=== PATIENT | female | born 1985 | race Caucasian/White ===

== ENCOUNTER 2019-06-14 09:02 | Emergency (ER) | payer MEDICAID, SELFPAY ==
[2019-06-14 09:03] VITALS: BP 138/72; PULSE 86; RESP 14; TEMP 36.6; O2SAT 98; BMI 25.7
--- NOTE | 2019-06-14 09:34 | RAD_ITS ---
STUDY: X-RAY - LEFT ANKLE REASON FOR EXAM: Female, 33 years old. Pain following injury. TECHNIQUE: 3 view(s) of the ankle. COMPARISON: None. FINDINGS: Nondisplaced linear fracture along the posterior malleolus of the distal tibia. Normal medial and lateral malleoli. Normal tibiotalar articulation and ankle mortise. Normal visualized talus and calcaneus. The visualized subtalar, talonavicular, calcaneocuboid and tarsal articulations are normal. Soft tissue swelling. RAD/Ankle min 3 Views IMPRESSION: Nondisplaced fracture along the posterior malleolus of the distal tibia. Soft tissue swelling. Electronically Signed: David Bustillo, at 10:01 EDT , Service support ,
--- NOTE | 2019-06-14 09:34 | ED.VIS.GEN ---
History of Present Illness Chief Complaint: Lower Extremity Injury Informant: Patient Onset: Today Current Severity: Mild Narrative: Complains of left lower extremity ankle injury as she was walking up some stairs she inadvertently slipped has pain to the left ankle no foot pain no tib-fib knee or ankle pain no other complaints other injury Denies past history Past Medical History - Allergies and Home Meds Allergies/Adverse Reactions: Allergies No Known Allergies Allergy (Verified 05/12/15 10:46) Primary Care Physician: Care Physician,No Primary [Primary Care Provider] - Past Medical History: - Smoking Status: Never smoker Review of Systems ROS: - None and as above General: Denies: Chills, Fever, Sweats Eyes: Denies: Visual changes - bilaterally, Diplopia ENT: Denies: Rhinorrhea, Sore throat Cardiovascular: Denies: Chest pain, Palpitations Respiratory: Denies: Dyspnea, Cough, Dyspnea on exertion Gastrointestinal: Denies: Abdominal pain, Nausea, Vomiting, Diarrhea, Melena, Hematochezia Genitourinary: Denies: Dysuria, Hematuria, Frequency Musculoskeletal: Denies: Back pain, Extremity Pain Skin: Denies: Rash, Wounds Neurological: Denies: Headache, Weakness, Numbness Physical Exam Vital Signs/Narrative: Vital Signs Temp Pulse Resp BP Pulse Ox 06/14/19 09:03 97.8 F 86 14 138/72 H 98 Extremities: Tenderness, - - Very mild tenderness over the ankle primarily over the lateral malleolus she is able to dorsi and plantarflex Achilles intact the foot is nontender the ankle shows no deformity neurovascular function normal the tib-fib and knee are normal Diagnostic/Tx/Re-eval - Medical Decision Making Given all the above x-rays obtained of the ankle shows nothing acute I expect to the concept of occult injury to the bones ligaments the Achilles tendon etc. she is going on a trip to [place] she placed an Aircast crutches ice elevation [facility] for pain she will follow-up with her own orthopedic physician or Dr. Correa champion of sustainable design when she gets back or sooner and she will return for change in symptoms Home stable Final impression left ankle injury ED Disposition - Plan for ED Patient: Diagnosis: Ankle injuries Instructions: Sprain, Ankle, with X-Ray Referrals: Care Physician,No Primary [Primary Care Provider] - Jose Correa MD [STAFF PHYSICIAN] -
--- NOTE | 2019-06-14 10:35 | ED.DEP ---
ED Disposition - Plan for ED Patient: Diagnosis: Ankle injuries Instructions: FRACTURE, Lower Extremity Prescriptions: Naproxen [Naprosyn] 500 mg PO BID PRN #20 tab Prescription Printed Referrals: Jose Correa MD [STAFF PHYSICIAN] - Care Physician,No Primary [Primary Care Provider] -
--- NOTE | 2019-06-14 10:43 | ED.RN ---
PT NOT ABLE TO TOLERATE WALKING BOOT PLACEMENT. DR SAM INFORMED- VERBAL INSTRUCTIONS RECEIVED TO PLACE LOOSE REHAN WRAP AND AIR CAST. PT HAS APPT W/ORTHO AT 1515 TODAY. PAIN MED REQUESTED BY PT- NEW ORDER RECEIVED FOR NAPROXEN 500MG X1 PO.
[2019-06-14] MEDS: Naproxen 250 MG Tablet 500 MG PO (10:47)
== END 2019-06-14 11:01 | disposition home or self-care (01) ==
PROVIDERS: Emergency Provider Emergency Medicine
DX: S82.892A Other fracture of left lower leg, initial encounter for closed fracture (principal); W01.0XXA Fall on same level from slipping, tripping and stumbling without subsequent striking against object, initial encounter; Y93.01 Activity, walking, marching and hiking; Y92.89 Other specified places as the place of occurrence of the external cause; Y99.9 Unspecified external cause status
CPT/HCPCS: 73610; 99284

== ENCOUNTER 2019-07-31 10:30 | Outpatient (RCR) | payer MEDICAID, SELFPAY ==
--- NOTE | 2019-07-09 16:51 | HP.PTEVAL_ITS ---
Patient's Visit Information BERTIN PEARL is a 33 year old F referred to Physical Therapy by Jose Correa MD with a diagnosis of Ankle Fracture. Date of Evaluation: 07/06/19 Physical Therapist: Madelyn Poe DPT - Visit Plan Frequency: 2x /Week Duration: 4 Weeks Plan: Focus on ROM, WB tolerance, general LE strengthening, postural stability, gait training, stair training, and pain control. Modalities as needed. - Subjective Findings: Pt. slipped on water at home and fell 06/14/2019. She went to ER where they attempted to place her ankle in a boot, but were unable to d/t swelling. She saw Dr. Correa at the ER for consult- Initially they told her the ankle was not fractured but called later to inform her that their was actually a distal fibular fracture. She was given an air cast and left for [place] the next day for vacation. She ambulated mostly on crutches while in [place], with much difficulty. She reports falling multiple times on crutches so her father purchased her a knee scooter. Upon return she saw Dr. Correa and was NWB?ing and was placed in a boot. Mostly uses a knee-scooter to ambulate at this time. She states to bothered more by swelling than the pain at this point. She reports pain to be 7/10 at its worst, but currently a 1/10. Aggravating factors include WB?ing, stairs, and plantarflexing. Relieving factors include ice and rest. Deny?s radiating pain up the leg. Reports N/T on bottom & sides of the foot. 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 Pt. reports using knee-scooter for most of work day. Pt. has one child (8 years old) and one dog at home and appears very anxious regarding her L ankle. Follow-up appointment with Dr. Correa on 07/09/19 to discuss WB status. - Objective Posture: FH, RS. Gait: currently non-weight bearing and using knee scooter in clinic- able to maintain precautions of NWB during initial evaluation. Palpation: TTP at malleoli & heel. AROM: DF 5, PF 30, Inv 30, Ev 10. Girth: Malleoli 25 cm, Fig. 8 50 cm, Met Heads 22.5 cm. Strength: Knee Flex. 5/5, Ext 5/5, ankle PF 4-/5, DF 4-/5. Flexibility: Gastroc: severe, Soleus: moderate, Hamstring: moderate. Observation: mild atrophy of the calf- mild bruising down the 5th met and into the 3-5 metatarsals - Goals Goal 1:: Pt. will be I with HEP and progression Goal Time Frame: 4-6 Weeks Goal 2:: Pt. will be able to ambulate >300 ft with normalized gait pattern w/ no AD or boot. Goal Time Frame: 4-6 Weeks Goal 3:: Pt. will be able to ascend/descend stairs with recirpocal pattern w/ no use of handrail Goal Time Frame: 4-6 Weeks Goal 4:: Pt. will return to work w/ pain level of 0/10 Goal Time Frame: 4-6 Weeks - Rehabilitation Potential Physical Therapy Diagnosis: Pt. presents with hypomibility, antalgic gait pattern, edema, decreased muscle performance, and pain leading to decreased ability of ADL and decreased function. Rehabilitation Potential: Good - Anticipated Interventions Patient/Client Instruction: Educate patient on: Condition, Plan of Care, Risk Factors For the Purpose of:: To decrease pain Therapeutic Exercise to Include: Strength training, Endurance training, Balance training, Agility training, Body mechanics, Postural training, Flexibilty training, Gait and locomotor training, Passive ROM, Active ROM, Dynamic Lumbar Stabilization For the Purpose of:: To improve muscle performance and motor function Functional Training to Include: Gait training For the Purpose of:: To improve ability to perform ADL's Assistive Devices: Crutches For the Purpose of:: To improve ability to perform ADL's Cryotherapy (ice pack, ice massage): Yes Thermo therapy (hot pack): Yes For the Purpose of:: To decrease pain Thank you for the opportunity to evaluate your patient. For Medicare and Medicare HMO plans, please review the plan of care and approve it. It will need to be FAXED BACK to us at [phone] for Medicare purposes. For Medicare only, by signing this I certify the plan of care. Please let me know if there are questions or concerns regarding this plan of care. Physician Signature: Date:
--- NOTE | 2019-07-31 12:35 | HP.PTDCSUM ---
HP - PT D/C Summary It has been my pleasure to treat BERTIN PEARL under orders from Jose Correa MD, for the diagnosis of Ankle Fracture for a total of 5 visit(s). Discharge Date: Please see the following information for a summary of their discharge status. - Subjective Subjective: Had some swelling in shower a few days ago, w/ mild. Some diffcult descending stairs, no significant concerns. - Overall Improvement % Improvement: 90 - Objective Objective/Function: Posture: FH, RS. Gait: No deviations noted. No AD. Palpation: Slight tenderness at lat. mal. AROM: DF 15, PF 30, Inv 30, Ev 30. Girth: Malleoli 24 cm, Fig. 8 26 cm, Met Heads 18 cm. Strength: Knee Flex. 5/5, Ext 5/5, ankle PF 5/5, DF 5/5. Flexibility: Gastroc: severe, Soleus: mild, Hamstring: mild - Goals Goal 1:: Pt. will be I with HEP and progression Goal Progress: Goal Met Goal 2:: Pt. will be able to ambulate >300 ft with normalized gait pattern w/ no AD or boot. Goal Progress: Goal Met Goal 3:: Pt. will be able to ascend/descend stairs with recirpocal pattern w/ no use of handrail Goal Progress: Goal Met Goal 4:: Pt. will return to work w/ pain level of 0/10 Goal Progress: Progressing - Plan Plan: Focus on ROM, WB tolerance, general LE strengthening, postural stability, gait training, stair training, and pain control. Modalities as needed. 07/31/19 Pt. D/C d w/ HEP: step-ups, lateral step-ups, lateral band walks (PTB), gastroc stretch, standing HS stretch, 4-Way Ankle PTB - D/C Information If there are questions or concerns regarding this patient's physical therapy, please feel free to call me at [phone]. Thank you for the referral of this patient. Sincerely, Madelyn Poe DPT
== END 2019-07-31 19:00 | disposition home or self-care (01) ==
LOC: PT 10:30
PROVIDERS: Referring Provider Specialist; Visit Provider Specialist
DX: S82.892D Other fracture of left lower leg, subsequent encounter for closed fracture with routine healing (principal)
CPT/HCPCS: 97110; 97116; 97161; 97164

== ENCOUNTER 2021-12-29 11:45 | Emergency (ER) | payer MEDICAID, SELFPAY ==
[2021-12-29 11:46] VITALS: BP 146/105; PULSE 86; RESP 18; TEMP 36.2; O2SAT 96; BMI 28.1
--- NOTE | 2021-12-29 12:09 | EKG12_ITS ---
Test Reason : CHEST TIGHTNESS Blood Pressure : / mmHG Vent. Rate : 082 BPM Atrial Rate : 082 BPM P-R Int : 168 ms QRS Dur : 080 ms QT Int : 356 ms P-R-T Axes : 061 039 056 degrees QTc Int : 415 ms Sinus rhythm with Premature atrial complexes Otherwise normal ECG Confirmed by OUSMANE TURK, FRANCESCA ([id number]), electronic news gathering editor KAUR ROBLES ([id number]) on 12/30/2021 11:53:45 AM Referred By: WAYLON Confirmed By:FRANCESCA ROMEO MD
--- NOTE | 2021-12-29 12:09 | RAD_ITS ---
STUDY: X-RAY CHEST REASON FOR EXAM: Female, 36 years old. Intermittent chest pain. TECHNIQUE: Single AP portable view of the chest. COMPARISON: None. FINDINGS: The lungs are clear and expanded. There is no demonstrated pleural abnormality. Normal size heart. Normal mediastinum and broderick. Normal visualized pulmonary arteries. Normal visualized aortic arch and descending thoracic aorta. There is a levoscoliosis of the thoracic spine. Normal visualized ribs, clavicles, and shoulders. There is no demonstrated abnormality of the visualized soft tissue structures of the upper abdomen. RAD/Chest 1 View (Portable) IMPRESSION: Levoscoliosis. The lungs are clear. Electronically Signed: David Bustillo MD at 12:47 EST ,
[2021-12-29 12:44] VITALS: PULSE 93; RESP 20; O2SAT 100
[2021-12-29 13:04] LABS: Absolute Lymphocyte Count 1.61 X10^3/uL (0.83-4.51); Absolute Neutrophil Count 6.7 X10^3/uL (2.0-7.7); Basophil# 0.08 X10^3/uL; Basophil% 0.9 % (0-1); Eosinophil# 0.21 X10^3/uL; Eosinophils% 2.3 % (0-5); Hematocrit 40.1 % (37-47); Hemoglobin 13.5 g/dL (12.0-15.0); Lymphocyte # 1.61 X10^3/ul (0.83-4.51); Lymphocyte % 17.4 % (19-41); Mean Corp Hgb Conc 33.7 g/dL (32-36); Mean Corpuscular Hgb 28.9 pg (27.0-32.0); Mean Corpuscular Volume 85.9 fL (81-99); Mean Platelet Vol. 9.1 fl (6.2-12.0); Monocyte% 6.5 % (0-10); NRBC Flagged by Analyzer 0 % (0-5); Neutrophil # 6.73 X10^3/uL (2.7-7.7); Neutrophil % 72.7 % (47-70); Platelet Count 323 K/mm3 (150-450); RBC Distribution Width SD 37.7 fl (35.1-43.9); Red Blood Count 4.67 M/mm3 (4.2-5.4); White Blood Count 9.3 K/mm3 (4.4-11.0)
[2021-12-29 13:18] LABS: Anion Gap 4 (5-15); BUN 12 mg/dL (7-18); BUN/Creat Ratio 14.4 RATIO (10-20); Chloride 107 mmol/L (98-107); Creatinine, Serum 0.84 mg/dL (0.55-1.02); EST Glomerular Filtration Rate 82 mL/min (>60); Est Glom Filt Rate - Afr Amer 99 mL/min (>60); Estimated Creatinine Clearance 79.95 ml/min; Glucose 107 mg/dL (74-106); Potassium 3.7 mmol/L (3.5-5.1); Sodium Level 139 mmol/L (136-145); Troponin-I HS < 3 pg/mL (3.0-54.0)
--- NOTE | 2021-12-29 14:18 | ED.VIS.CHEST ---
HPI History of Present Illness Chief Complaint: Chest Pain Informant: patient Onset/Context/Timing Onset: Days Timing: Intermittent Quality: Positive for - (Palpitations) Location: Substernal Worsened By: Nothing Relieved By: Nothing Associated Symptoms: Positive for Lightheadedness and Palpitations; Negative for Nausea, Vomiting, Diaphoresis, Dyspnea, Cough, Fever and Acid Reflux Narrative Narrative: Patient presents with chest pain and palpitations that have been intermittent for the past couple days. Patient states that her watch noted that she was having an irregular heartbeat. Patient states that it registered as atrial fibrillation. Patient called her primary care physician who referred her to the emergency department for testing. Patient states she had an episode of lightheadedness with this. Patient states nothing makes it better nothing makes it worse. Patient states it is intermittent and only last for a few seconds. CVD Risk Factors: Negative for Hypertension, Diabetes, Hypercholesterolemia, Family History 1' </=55 and Smoking PE Risk Factors: Negative for Recent Travel/Surgery, Recent Immobilization, Prior DVT or PE and OCP + Smoking + >/=35 PFSH PFSH Medical History Fatty liver Home Medications naproxen 500 mg PO BID PRN #20 tab 06/14/19 [Rx Last Taken Unknown] cetirizine [Zyrtec] 10 mg PO DAILY 12/29/21 [History Last Taken Unknown] vitamin E 100 unit PO DAILY 12/29/21 [History Last Taken Unknown] Allergy/AdvReac Type Severity Reaction Status Date / Time adhesive tape AdvReac Itching Verified 12/29/21 11:48 Surgical History no surgical history no surgical history Social History Smoking Status: Never smoker ROS ROS ED Constitutional Constitutional ED: Denies chills or fever(s) Eyes Eyes: Denies blurry vision or change in vision ENT ENT ED: Denies rhinorrhea or sore throat Cardiovascular Cardiovascular: Reports chest pain and palpitations Respiratory/Chest Respiratory/Chest: Denies cough or dyspnea Gastrointestinal Gastrointestinal: Denies abdominal pain, nausea or vomiting Genitourinary Genitourinary ED: Denies dysuria or hematuria Musculoskeletal Musculoskeletal: Reports neck pain; Denies back pain Integumentary Denies abscess or rash Neurologic Neurologic: Denies headache(s) or weakness Allergic/Immunologic Allergic/Immunologic ED: Denies mouth swelling or urticaria EXAM Physical Exam Const Vital Signs: 12/29/21 11:46 12/29/21 12:44 Temperature 97.2 F L Temperature Source Temporal Pulse Rate 86 93 Respiratory Rate 18 20 H Respiratory Effort Normal Non-Labored Blood Pressure 146/105 H Blood Pressure Mean 118 Pulse Ox 96 100 Oxygen Delivery Method Room Air Room Air Positive well nourished and well developed; Negative for obese General Appearance ED: well developed and NAD Nutritional Appearance: Negative for obese HEENT normocephalic and atraumatic Eyes PERRL and EOMs intact bilaterally Neck supple and no JVD Chest Wall palpation of chest normal Resp normal respiratory effort and clear to auscultation bilaterally Effort and Inspection: Negative for respiratory distress Cardio regular rate, regular rhythm and no murmurs GI normal to inspection, nondistended, normoactive bowel sounds, soft to palpation, non-tender and non-distended Extremity normal to inspection General Extremety ED: Negative for edema or tenderness General Extremity: Negative for edema Neuro oriented x3, CN's II-XII intact bilaterally and no sensory deficits noted Sensorium / Orientation: awake and alert Motor Exam: strength 5/5 throughout Psych mental status grossly normal Heart Score History: Slightly/Non-Suspicious ECG: Normal Age: </= 45 years Risk Factors: No Risk Factors Troponin: </= Normal Limit Score: 0 MDM MDM MDM Narrative Medical decision making narrative: When I looked at the rhythms on her phone, it appeared to be sinus rhythm with frequent PACs and not atrial fibrillation. EKG was obtained. On my interpretation, it showed a normal sinus rhythm with a rate of 82 with frequent PACs. AL interval, QRS interval, and QTc intervals were all normal. [place] was normal. There are no acute ST or T wave changes. Portable 1 view chest x-ray was obtained. On my interpretation, lung gastelum are clear. There is normal cardiac silhouette. Bony thorax is normal. There is no acute process noted. Radiologist also interpreted the x-ray and agrees. CBC and basic metabolic profile were obtained and were within normal limits. High-sensitivity troponin was less than 3. Patient feels better on reevaluation. Patient was instructed to follow-up with her primary care physician in 5 to 7 days. Patient understood and was agreeable with the plan. All questions were answered. Lab Data Attestation: I reviewed the patient's lab results. Labs: Laboratory Results - last 24 hr 12/29/21 12/29/21 12:44 12:44 WBC 9.3 RBC 4.67 Hgb 13.5 Hct 40.1 MCV 85.9 MCH 28.9 MCHC 33.7 RDW Std Deviation 37.7 RDW Coeff of [place]dul[place] 12.0 Plt Count 323 MPV 9.1 Immature Gran % (Auto) 0.200 Neut % (Auto) 72.7 H Lymph % (Auto) 17.4 L Wilkes % (Auto) 6.5 Eos % (Auto) 2.3 Baso % (Auto) 0.9 Absolute Neuts (auto) 6.7 Absolute Lymphs (auto) 1.61 Nucleated RBC % 0 Sodium 139 Potassium 3.7 Chloride 107 Carbon Dioxide 28.0 Anion Gap 4 L BUN 12 Creatinine 0.84 Estim Creat Clear Calc 79.95 Est GFR (MDRD) Af Amer 99 Est GFR (MDRD) Non-Af 82 BUN/Creatinine Ratio 14.4 Glucose 107 H Calcium 9.0 Troponin I High Sens < 3 L Radiography Diagnostic Testing: Clinical Impression(s) from Imaging Studies Chest X-Ray 12/29/21 12:09 IMPRESSION: Levoscoliosis. The lungs are clear. Electronically Signed: David Bustillo MD at 12:47 EST , EKG Initial EKG: Attestation: I personally reviewed and interpreted this EKG as follows: Interpretation: Sinus Rhythm (82 with frequent PACs) and No Acute Injury Pattern Discharge Plan Triage Chief Complaint: Chest Pain ED Provider: Pillo Ayala Dx/Rx/DC Orders Clinical Impression: Heart palpitations, Premature atrial contractions Instructions: ED Palpitations Prescriptions: No Action naproxen 500 MG tablet 500 mg PO BID PRN Qty: 20 RF: 0 vitamin E 100 unit Capsule 100 unit PO DAILY RF: 0 Zyrtec 10 mg Capsule 10 mg PO DAILY RF: 0 Primary Care Provider: Kun Reis Referrals: Kun eRis MD [Primary Care Provider] - 3-5 Days Disposition Disposition: Home, Self Care
[2021-12-29 14:44] VITALS: BP 129/74; PULSE 66; RESP 15; O2SAT 97
== END 2021-12-29 14:45 | disposition home or self-care (01) ==
PROVIDERS: Emergency Provider Emergency Medicine; PCP Family Medicine; Visit Provider Emergency Medicine
DX: R00.2 Palpitations (principal); I49.1 Atrial premature depolarization
CPT/HCPCS: 71045; 80048; 84484; 85025; 93005; 99284